=== PATIENT | female | born 1955 | race Caucasian/White ===

== ENCOUNTER 2021-03-30 07:47 | Day surgery (SDC) | payer BC ==
[~2021-03-30] VITALS: Ht 157.5 cm; Wt 75.2 kg
[~2021-03-30 07:47] MED LIST: ADRENAL CORTEX; ALLEGRA ALLERG180 MG PO; Armour Thyroid15 MG; Benadryl25 MG PO; C COMPLEX1000 M1 PO; DHEA 2525 MG PO; FAMO20 PO; PRED5 PO; PROBIOTIC1 EA13 PO; VITAMIN D325 MC3; ZYRTEC10 M2 PO; [UNRECOGNIZED DRUG - OTHER]
--- NOTE | 2021-03-30 08:19 | NUR ---
03/30/21 0819 Linda Reina 1 TRY RIGHT HAND WOULDNT ADVANCE 2 TRY RIGHT HAND WOULDNT ADVANCE 3 TRY RIGTH AC WOULDNT ADVANCE
== END 2021-03-30 10:00 | disposition home or self-care (01) ==
LOC: ORSCSDS 07:47
PROVIDERS: Surgery
PROC: 0DBK8ZX Excision of Ascending Colon, Via Natural or Artificial Opening Endoscopic, Diagnostic (ICD-10-PCS; principal; 2021-03-30 09:00)
DX: Z12.11 Encounter for screening for malignant neoplasm of colon (principal); D12.2 Benign neoplasm of ascending colon; E78.00 Pure hypercholesterolemia, unspecified; I10 Essential (primary) hypertension; E03.9 Hypothyroidism, unspecified; E66.9 Obesity, unspecified; Z68.30 Body mass index [BMI] 30.0-30.9, adult; Z79.899 Other long term (current) drug therapy
CPT/HCPCS: 88305; J2704; J7120

== ENCOUNTER → 2022-04-27 | Outpatient (CLI) | payer BC | END | disposition home or self-care (01) | LOC: LAB SHORT 11:09 → PLD 11:09 | DX: L57.0 Actinic keratosis (principal) | CPT/HCPCS: 88305; 88342 ==

== ENCOUNTER 2025-05-15 10:15 | Day surgery (SDC) | payer MEDICARE, OTHER ==
[~2025-05-15] VITALS: Ht 157.5 cm; Wt 68.3 kg
[~2025-05-15 10:15] MED LIST changes: +Balanced Salt Epinephrine Irrigation Solution 500 mL IR SCH; +Moxifloxacin HCL 0.5 MG/0.1 ML 0.4MLSYR LEFTEYE SCH; +Ondansetron 4 MG SoluTab MM PRN; +PHENYLEPHRINE\\TROPICAMIDE\\TETRACAINE OPHTHALMIC DILATING SOLN LEFTEYE PRN; +Povidone-Iodine 450 DROP/30 ML Solution LEFTEYE SCH; +Povidone-Iodine 450 DROP/30 ML Solution ONE; +Tetracaine HCl/Pf 0.5% Opth Soln 4 ml ONE; +Triamcinolone Inj Susp 40 MG / ML 1ML Vial INJ SCH; +Triamcinolone Inj Susp 40 MG / ML 1ML Vial ONE
--- NOTE | 2025-05-15 11:23 | NUR ---
05/15/25 Nazia Bardales INITIAL ANXIETY: "1 OR 2" PER PATIENT REPORT
[2025-05-15] MEDS ORDERED: EUTHYROX88 MC1 (11:31)
[2025-05-15] MEDS ORDERED: [UNRECOGNIZED DRUG - OTHER] (11:32)
[2025-05-15] MEDS ORDERED: VITAMIN K (11:32)
[2025-05-15] MEDS ORDERED: DHEA PO (11:33)
[2025-05-15] MEDS ORDERED: MAGNESIUM (11:34)
--- NOTE | 2025-05-15 12:05 | NUR ---
05/15/25 1205 Sarahi Santana HR:67 BP:119/71 SPO2:100% ON 10L BLOW BY O2 RR:18
[2025-05-15 12:54] VITALS: BP 139/86
== END 2025-05-15 12:44 | disposition home or self-care (01) ==
LOC: ORSCSDS 10:15
PROVIDERS: Ophthalmology
PROC: 08RK3JZ Replacement of Left Lens with Synthetic Substitute, Percutaneous Approach (ICD-10-PCS; principal; 2025-05-15 12:00)
DX: H25.812 Combined forms of age-related cataract, left eye (principal); E78.00 Pure hypercholesterolemia, unspecified; I10 Essential (primary) hypertension; E03.9 Hypothyroidism, unspecified; Z79.899 Other long term (current) drug therapy
CPT/HCPCS: A9270; J3301; V2632

== ENCOUNTER 2025-05-29 08:01 | Day surgery (SDC) | payer MEDICARE, OTHER ==
[~2025-05-29] VITALS: Ht 157.5 cm; Wt 70.2 kg
[~2025-05-29 08:01] MED LIST changes: +DHEA PO; +EUTHYROX88 MC1; +MAGNESIUM; -Moxifloxacin HCL 0.5 MG/0.1 ML 0.4MLSYR LEFTEYE SCH; +Moxifloxacin HCL 0.5 MG/0.1 ML 0.4MLSYR RIGHTEYE SCH; -PHENYLEPHRINE\\TROPICAMIDE\\TETRACAINE OPHTHALMIC DILATING SOLN LEFTEYE PRN; +PHENYLEPHRINE\\TROPICAMIDE\\TETRACAINE OPHTHALMIC DILATING SOLN RIGHTEYE PRN; -Povidone-Iodine 450 DROP/30 ML Solution LEFTEYE SCH; +Povidone-Iodine 450 DROP/30 ML Solution RIGHTEYE SCH; +VITAMIN K; +[UNRECOGNIZED DRUG - OTHER]
--- NOTE | 2025-05-29 08:56 | NUR ---
05/29/25 0856 Anne Marie Lmi 2800 DR GONZALEZ AT BEDSIDE, REQUESTS REDOSE OR VALIUM, 5MG AND TYLENOL 1 GRAM FOR PT HEADACHE. V/O NOTED ON CHART, READ BACK TO MD FOR VERIFICATION.
--- NOTE | 2025-05-29 09:17 | NUR ---
05/29/25 0917 Jamia Smallwood 0910 . BP:141/80 HR:65 O2:100% RESP:16
[2025-05-29 10:33] VITALS: BP 117/68
== END 2025-05-29 09:43 | disposition home or self-care (01) ==
LOC: ORSCSDS 08:01
PROVIDERS: Ophthalmology
PROC: 08RJ3JZ Replacement of Right Lens with Synthetic Substitute, Percutaneous Approach (ICD-10-PCS; principal; 2025-05-29 09:30)
DX: H25.811 Combined forms of age-related cataract, right eye (principal); Z96.1 Presence of intraocular lens; I10 Essential (primary) hypertension; E03.9 Hypothyroidism, unspecified; E78.00 Pure hypercholesterolemia, unspecified; Z79.899 Other long term (current) drug therapy
CPT/HCPCS: A9270; J3301; V2632